=== PATIENT | female | born 1985 | race Caucasian/White ===

== ENCOUNTER 2017-10-13 02:13 | Day surgery (SDC) | payer OTHER ==
[~2017-10-13] VITALS: Ht 157.5 cm; Wt 56.7 kg
--- NOTE | ~2017-10-13 | EKG ---
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
--- NOTE | ~2017-10-13 | S ---
[facility] [place] [address] SURGICAL PATH RPT PROCEDURE Name: MICHELLE DOUGLAS Room #: [facility]..#: [id number] Admission: 10/14/17 Date of : 87 Discharge: Report #: [id number] Path Case #: [id number] PATHOLOGY REPORT COLLECTION DATE: 10/13/2017 RECEIVED DATE: 10/13/2017 SUBMITTING PHYS: Dr. Aguilar Montague, OTHER PHYS: Nidia Avelar RN, BCFNP SPECIMEN(S) RECEIVED: A.Appendix * * * * * * * * * * * * FINAL DIAGNOSIS: "Appendix", appendectomy: - Acute suppurative appendicitis. (CLW:mmjanet; 10/14/2017) PATHOLOGIST: Joellen Navarro M.D. REPORT ELECTRONICALLY SIGNED BY: Joellen Navarro M.D. DATE/TIME: 10/14/2017 22:27 * * * * * * * * * * * * GROSS PATHOLOGY: Received in formalin, labeled "Michelle Douglas and appendix", is an vermiform appendix (10.7 cm length x up to 1.0 cm diameter) and attached mesoappendix (3.0 x 1.6 x 0.4 cm). The proximal surgical margin is closed by a linear staple line 1.5 cm in length with an average 0.3 cm width. The staple line is removed and the adjacent serosal surface is inked black. The proximal one half of the serosa is covered with lin-white exudate and the remaining is alvarado-pink with engorged vessels. The lumen is dilated and filled with pus and serous fluid. No discrete fecalith or mass is identified. The wall has an average thickness of 0.1 cm. The adelita-appendiceal soft tissue has a yellow cut surface. Punchboard Inserter sections are submitted in A1. (SWS; 10/13/2017) CLINICAL HISTORY: Acute appendicitis INITIAL CPT CODE(S): A; 43188 Professional services performed by [facility] at [address] , [place] [address] [address] SURGICAL PATH RPT PROCEDURE Name: DENISEMICHELLE Room #: [facility] M.R.#: [id number] Admission: 10/14/17 Date of : 87 Discharge: Report #: [id number] Path Case #: [id number] [facility] at [address] [place] [address], [address], [place] [address]. [address] [address] [place] [address] PHONE: [phone] DIRECTOR: Hayder Herrera M.D. * * * END OF REPORT * * *
[2017-10-13 02:28] VITALS: BP 155/105
[2017-10-13 02:47] LABS: ABSOLUTE NEUTROPHILS 11.8 thou/uL (1.4-8.2); BASOPHILS 0.4 % (0.0-2.0); HEMATOCRIT 38.5 % (37.0-47.0); HEMOGLOBIN 13.1 gm/dL (12.0-15.0); LYMPHOCYTES 18.1 % (24.0-44.0); MCH 29.8 pg (26.0-34.0); MCHC 34.1 g/dL (28.0-37.0); MCV 87.5 fL (80.0-100.0); MONOCYTES 7.8 % (1.0-8.0); PLATELET COUNT 182 thou/uL (150-400); POLYS 72.7 % (36.0-66.0); RDW 13.8 % (10.5-14.5); WBC 16.2 thou/uL (4.0-11.0)
[2017-10-13 02:55] LABS: ANION GAP 7 mmol/L (7-16); BUN 16 mg/dL (7-18); CALCIUM 9.6 mg/dL (8.5-10.1); CHLORIDE 104 mmol/L (98-107); CO2 28 mmol/L (21-32); CREATININE 0.7 mg/dL (0.6-1.0); GLUCOSE 96 mg/dL (74-106); POTASSIUM 3.5 mmol/L (3.5-5.1); SODIUM 139 mmol/L (136-145)
[2017-10-13 03:03] LABS: TROPONIN-I < 0.04 ng/mL (<0.06)
[2017-10-13 04:05] LABS: DIRECT BILIRUBIN < 0.1 mg/dL (<0.1-0.3); LIPASE 148 U/L (73-393); SGOT 18 U/L (15-37); SGPT 18 U/L (30-65); TOTAL BILIRUBIN 0.5 mg/dL (<0.1-1.0); TOTAL PROTEIN 7.8 g/dL (6.4-8.2)
[2017-10-13 08:00] VITALS: BP 114/60
[2017-10-13] MEDS ORDERED: ONDANSETRON HCL4 M2 PO (09:33)
[2017-10-13] MEDS ORDERED: HYDROCODONE-AP1 EAC6 PO (09:33)
[2017-10-13 12:01] VITALS: BP 114/60
== END 2017-10-13 13:30 | disposition home or self-care (01) ==
LOC: ER 02:13 → EROBS 06:43 → ER 06:43 → TBA 08:00 → EROBS 08:25 → OR 09:00 → ER 10-14 08:10 → OR 10-14 08:10
PROVIDERS: Emergency Medicine
DX: K35.80 Unspecified acute appendicitis (principal); N83.201 Unspecified ovarian cyst, right side; F41.8 Other specified anxiety disorders; Z98.890 Other specified postprocedural states; Z79.891 Long term (current) use of opiate analgesic
CPT/HCPCS: 50010; 50101; 50249; 50411; 50555; 50558; 50739; 50740; 50962; 51975; 52265; 53307; 53310; 54022; 54118; 56525; 56526; 56639; 62110; 62900; 70005

== ENCOUNTER 2017-10-30 15:15 | Emergency (ER) | payer OTHER ==
[~2017-10-30] VITALS: Ht 157.5 cm; Wt 56.2 kg
--- NOTE | ~2017-10-30 | EKG ---
[place] [address] [facility] [place] [address] ELECTROCARDIOGRAM REPORT Name: DENISE,TIMOTEO [facility] #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[facility] : 1985 Requested By: Remberto Patel Order Number: [id number] MD: Robert Carrington Measurements Intervals [place] Rate: 81 P: 55 [place]: 133 QRS: 47 QRSD: 96 T: 14 QT: 393 QTc: 457 Interpretive Statements Sinus rhythm No significant abnormality Compared to ECG 10/13/2017 02:30:54 Sinus tachycardia no longer present Electronically Signed On 10-31-2017 8:35:03 CDT by Robert Carrington [email or web address] <ELECTRONICALLY SIGNED> By: Robert Carrington MD, [facility] 10/31/17 0835 1553 1553 Robert Carrington MD, FACC /EPI
[~2017-10-30 15:15] MED LIST: HYDROCODONE-AP1 EAC6 PO; ONDANSETRON HCL4 M2 PO
[2017-10-30 16:00] LABS: ABSOLUTE NEUTROPHILS 3.6 thou/uL (1.4-8.2); BASOPHILS 1.2 % (0.0-2.0); EOSINOPHILS 1.4 % (0.0-3.0); HEMATOCRIT 38.7 % (37.0-47.0); HEMOGLOBIN 13.2 gm/dL (12.0-15.0); LYMPHOCYTES 32.7 % (24.0-44.0); MCH 29.9 pg (26.0-34.0); MCHC 34.2 g/dL (28.0-37.0); MCV 87.4 fL (80.0-100.0); MONOCYTES 7.3 % (1.0-8.0); PLATELET COUNT 218 thou/uL (150-400); POLYS 57.4 % (36.0-66.0); RBC 4.42 mil/uL (4.20-5.00); RDW 13.9 % (10.5-14.5); WBC 6.2 thou/uL (4.0-11.0)
[2017-10-30 16:08] LABS: ANION GAP 9 mmol/L (7-16); BUN 16 mg/dL (7-18); CALCIUM 9.3 mg/dL (8.5-10.1); CHLORIDE 102 mmol/L (98-107); CO2 26 mmol/L (21-32); CREATININE 0.7 mg/dL (0.6-1.0); GLUCOSE 89 mg/dL (74-106); POTASSIUM 3.7 mmol/L (3.5-5.1); SODIUM 137 mmol/L (136-145)
[2017-10-30 16:17] LABS: TROPONIN-I < 0.04 ng/mL (<0.06)
[2017-10-30 17:29] VITALS: BP 115/69
== END 2017-10-30 17:31 | disposition home or self-care (01) ==
LOC: ER 15:15
PROVIDERS: Physician Assistant
DX: R07.9 Chest pain, unspecified (principal); R00.2 Palpitations; Z90.49 Acquired absence of other specified parts of digestive tract